=== PATIENT | male | born 1980 | race Caucasian/White ===

== ENCOUNTER 2021-01-07 16:38 | Emergency (ER) | payer MEDICAID ==
[~2021-01-07] VITALS: Ht 182.9 cm; Wt 81.0 kg
[2021-01-07] MEDS ORDERED: PERM60CR4 TP (21:04)
[2021-01-07] MEDS ORDERED: ACYC200C PO (21:04)
[2021-01-07 21:10] VITALS: BP 135/72
[2021-01-10 04:11] LABS: NEISSERIA GONORRHOEAE NAA Negative (Negative)
== END 2021-01-07 21:24 | disposition home or self-care (01) ==
LOC: ER 16:38
DX: A64 Unspecified sexually transmitted disease (principal); E11.9 Type 2 diabetes mellitus without complications; Z59.0 Homelessness; Z88.6 Allergy status to analgesic agent
CPT/HCPCS: 87491; 87591; 99281